=== PATIENT | male | born 1950 | race Caucasian/White ===

== ENCOUNTER 2019-04-18 19:40 | Emergency (ER) | payer MEDICARE ==
[~2019-04-18] VITALS: Ht 185.4 cm; Wt 122.5 kg
[~2019-04-18 19:40] MED LIST: ASPIR 8181 MG PO; BENICAR PO; LANTUS100 UNITS/ SQ; METFORMIN HCL500 MG PO; METOPROLOL PO; MULTAQ400 MG PO; NOVOLOG100 UNITS/ SQ; PANTOPRAZOLE SO40 MG PO
--- OUTSIDE RECORDS SUMMARY | 2019-04-18 19:42 | XMS REPORT | Encounter Summary ---
Author Organization Unknown Address [address] [place] [address] Phone [phone] Care Team Providers Care Platen Press Feeder Name Role Phone Dr. Goldie Bacon 3 [phone] Goldie Bacon MD 3 [phone] Milad Dent 81 [phone] July Burns (Spouse) 61 [phone] Martine Stinson MD 105 [phone] Kosta Suarez 115 [phone] Brenda Boyd MD 119 [phone] Leobardo Power DPM 120 [phone] Winnie Kaplan 124 [phone] Elton Mayo MD 130 [phone] Reason for Visit cough / congestion Instructions 1. Body mass index 30+ - obesity body mass index: care instructions learning about healthy weight 2. Depression screening learning about depression 3. Acute bronchitis ceftriaxone 1 gram solution for injection Zithromax Z-Bruce 250 mg tablet Cheratussin AC 10 mg-100 mg/5 mL oral liquid Medrol (Bruce) 4 mg tablets in a dose pack ProAir HFA 90 mcg/actuation aerosol inhaler Discussion Note: None recorded. Plan of Care Patient Instructions meds as directed ,adjust insulin prn as dose bruce > fbs Reminders Provider Appointments None recorded. Lab None recorded. Referral None recorded. Procedures None recorded. Surgeries None recorded. Imaging None recorded. Medications Name Start Date amlodipine 2.5 mg tablet Take 1 tablet every day by oral route. Aspir-Low 81 mg tablet,delayed release Take 1 tablet every day by oral route. atorvastatin 10 mg tablet Take 1 tablet every day by oral route. azelastine 0.05 % eye drops INSTILL 1 DROP INTO AFFECTED EYE(S) BY OPHTHALMIC ROUTE 2 TIMES PER DAY Cheratussin AC 10 mg-100 mg/5 mL oral liquid Take 10 mL every 4 hours by oral route. clopidogrel 75 mg tablet Take 1 tablet every day by oral route. clotrimazole-betamethasone 1 %-0.05 % topical cream APPLY TO THE AFFECTED AND SURROUNDING AREAS OF SKIN BY TOPICAL ROUTE 2 TIMES PER DAY IN THE MORNING AND EVENING FOR 2 WEEKS Levemir U-100 Insulin 100 unit/mL subcutaneous solution Inject 60 units twice a day by sub-q route. loratadine 10 mg tablet Take 1 tablet every day by oral route as needed. losartan 100 mg tablet Take 1 tablet every day by oral route. Medrol (Bruce) 4 mg tablets in a dose pack as directed metformin 500 mg tablet Take 1 tablet twice a day by oral route. metoprolol tartrate 25 mg tablet Take 3 tablets twice a day by oral route. Multaq 400 mg tablet Take 1 tablet twice a day by oral route. Novolog Flexpen U-100 Insulin aspart 100 unit/mL (3 mL) subcutaneous Inject 25 units 3 times a day by subcutaneous route before meals. nystatin 100,000 unit/gram topical cream APPLY TO THE AFFECTED AREA(S) BY TOPICAL ROUTE 2 TIMES PER DAY Nystop 100,000 unit/gram topical powder APPLY TO THE AFFECTED AREA(S) BY TOPICAL ROUTE 2 TIMES PER DAY olopatadine 0.2 % eye drops INSTILL 1 DROP INTO AFFECTED EYE(S) BY OPHTHALMIC ROUTE ONCE DAILY pantoprazole 40 mg tablet,delayed release Take 1 tablet every day by oral route. ProAir HFA 90 mcg/actuation aerosol inhaler Inhale 2 puffs every 4 hours by inhalation route. triamterene 37.5 mg-hydrochlorothiazide 25 mg capsule Take 1 capsule every other day by oral route. Victoza 3-Bruce 0.6 mg/0.1 mL (18 mg/3 mL) subcutaneous pen injector Zithromax Z-Bruce 250 mg tablet TAKE 2 TABLETS (500 MG) BY ORAL ROUTE ONCE DAILY FOR 1 DAY THEN 1 TABLET (250 MG) BY ORAL ROUTE ONCE DAILY FOR 4 DAYS Medications Administered None recorded. Vitals Height Weight BMI Blood Pressure 6 ft 278.2 lbs 37.7 kg/m2 116/70 mm[Hg] Lab Results None recorded. Allergies Code Code System Name Reaction Severity Status Onset 1585460 RxNorm Latex Active Sulfa (Sulfonamide Antibiotics) Hives Active Problems Name Status Onset Date Source Type 2 Diabetes Mellitus without Complication Active 07/16/2016 Body Mass Index 30+ - Obesity Active 07/16/2016 Benign Essential Hypertension Active 07/16/2016 Coronary Arteriosclerosis in [place] Artery Active 07/16/2016 Osteoarthritis of Knee Active 12/18/2016 Type II Diabetes Mellitus Uncontrolled Active 12/29/2016 Atrial Fibrillation Active 12/29/2016 Neck Pain Active 12/11/2017 Kyphosis of Thoracic Spine Active 12/11/2017 Hyperlipidemia Active 04/06/2018 Long-term Current Use of Insulin Active 04/06/2018 Type 2 Diabetes Mellitus with Multiple Complications Active 04/06/2018 Stented Coronary Artery Active 04/06/2018 Polyp of Colon Active 10/07/2018 Procedures Date Name Performed by 10/04/2018 Colonoscopy Information not available Skin Splt Grft Trnk/arm/leg Information not available Neck Spine Disk Surgery Information not available Knee Surgery Information not available Knee Surgery Information not available Vaccine List Vaccine Type influenza, high dose seasonal 04/06/20160.5 mL 07/30/20170.5 mL 03/24/20180.5 mL influenza, unspecified formulation 04/25/2015 pneumococcal conjugate PCV 13 04/06/20160.5 mL pneumococcal polysaccharide PPV23 07/19/2013 pneumococcal, unspecified formulation 07/19/2013 Tdap 01/04/2012 zoster 07/19/2013 Social History Smoking Status Former Smoker (1 1/2 PPD) Past Encounters 11/03/2018 Body Mass Index 30+ - Obesity; Depression Screening; Acute Bronchitis Murali Sandra MD: [facility] [place] [address], Ph. History of Present Illness Note:3 d h/o yellow mucoid productive cough,taking otc diabetic cough meds Review of Systems:ROS as noted in the HPI Review of Systems None recorded. Physical Exam Upper Respiratory Infection Exam Comprehensive Reported By: Patient Constitutional: General Appearance in no acute distress Skin: Inspection and palpation: no rash, no lesions, no ulcer, good turgor, no jaundice Head: Sinuses no tenderness Eyes: Pupils EOM intact, PERRLA, conjunctiva non-injected Ears: Right External auditory canal normal appearance, no obstruction, no erythema, no discharge. Left External auditory canal normal appearance, no obstruction, no erythema, no discharge. Right Tympanic membrane mobile with pneumatic otoscopy, pearly clements, landmarks clear. Left Tympanic membrane: mobile with pneumatic otoscopy, pearly clements, landmarks clear Nose: Nasal Skin: no lesion, no lacerations. Nasal Mucosa normal, pink and moist Oral Cavity/Mouth: Lips, teeth, gums normal lips, normal gums. Oral Mucosa: normal, moist, no lesions. Palate: normal hard palate, normal soft palate. Tongue: normal tongue, no lesion, no edema. Tonsils: normal tonsils, no lesions. Posterior pharynx: normal Lymph Nodes: Cervical no palpable lymph node enlargement, no submandibular adenopathy, no posterior cervical adenopathy, no anterior cervical adenopathy, no supraclavicular adenopathy Neck: Neck symmetrical, trachea midline Lungs: Respiratory effort unlabored. Auscultation no rales / crackles, no rhonchi, wheezing expiratory diffusely Cardiovascular System: Auscultation regular rate and rhythm, no murmur, no rubs, no gallops. Observation/Palpation of peripheral vascular system no varicosities, carotid pulse normal, no edema
--- OUTSIDE RECORDS SUMMARY | 2019-04-18 19:42 | XMS REPORT ---
Author Author [facility] Address Unknown Phone Unavailable Care Team Providers Care Graphic Production Artist Name Role Phone Unavailable Unavailable Payers Payer Name Policy Type Policy Number Effective Date Expiration Date Problems This patient has no known problems. Allergies, Adverse Reactions, Alerts Allergy Name Allergy Type Status Severity Reaction(s) Onset Date Inactive Date Treating Clinician Comments Sulfa (Sulfonamide Antibiotics) DA Active U 2016-05-26 00:00:00 latex DA Active U 2016-05-26 00:00:00 Medications This patient has no known medications.
--- OUTSIDE RECORDS SUMMARY | 2019-04-18 19:42 | XMS REPORT | Encounter Summary ---
Author Organization Unknown Address [address] [place] [address] Phone [phone] Care Team Providers Care Milieu Coordinator Name Role Phone Dr. Goldie Bacon 3 [phone] Goldie Bacon MD 3 [phone] Milad Dent 82 [phone] July Burns (Spouse) 61 [phone] Martine Stinson MD 105 [phone] Kosta Suarez 115 [phone] Brenda Boyd MD 119 [phone] Leobardo Power DPM 120 [phone] Winnie Kaplan 124 [phone] Elton Mayo MD 130 [phone] Reason for Visit other - see typed reason Instructions 1. Right upper quadrant pain urinalysis, dipstick urinalysis complete, reflex culture US, abdomen - please schedule and contact patient 2. Gastroesophageal reflux disease ranitidine 150 mg tablet 3. Body mass index 30+ - obesity body mass index: care instructions learning about healthy weight 4. Morbid obesity 5. Atrial fibrillation 6. Peripheral vascular disease 7. Type 2 diabetes mellitus with multiple complications Discussion Note: None recorded. Plan of Care Reminders Provider Appointments None recorded. Lab Urinalysis, Dipstick 12/20/2018 [facility] ([facility] [place] Urinalysis Complete, Reflex Culture 12/20/2018 [facility] Laboratory Referral None recorded. Procedures None recorded. Surgeries None recorded. Imaging US, Abdomen 12/20/2018 [facility] [place] Medications Name Start Date amlodipine 2.5 mg tablet Take 1 tablet every day by oral route. Aspir-Low 81 mg tablet,delayed release Take 1 tablet every day by oral route. atorvastatin 10 mg tablet Take 1 tablet every day by oral route. clopidogrel 75 mg tablet Take 1 tablet every day by oral route. Levemir U-100 Insulin 100 unit/mL subcutaneous solution Inject 60 units twice a day by sub-q route. loratadine 10 mg tablet Take 1 tablet every day by oral route as needed. losartan 100 mg tablet Take 1 tablet every day by oral route. metformin 500 mg tablet Take 1 tablet twice a day by oral route. methylprednisolone 4 mg tablets in a dose pack as directed metoprolol tartrate 25 mg tablet Take 3 tablets twice a day by oral route. Multaq 400 mg tablet Take 1 tablet twice a day by oral route. Novolog Flexpen U-100 Insulin aspart 100 unit/mL (3 mL) subcutaneous Inject 25 units 3 times a day by subcutaneous route before meals. pantoprazole 40 mg tablet,delayed release Take 1 tablet every day by oral route. ranitidine 150 mg tablet TAKE 1 TABLET BY MOUTH EVERY DAY AT BEDTIME triamterene 37.5 mg-hydrochlorothiazide 25 mg capsule Take 1 capsule every other day by oral route. Victoza 2-Bruce 0.6 mg/0.1 mL (18 mg/3 mL) subcutaneous pen injector Medications Administered None recorded. Vitals Height Weight BMI Blood Pressure 6 ft 277 lbs 37.6 kg/m2 106/70 mm[Hg] Lab Results Date Name Specimen Result Interpretation Description Value Range Status Address Urinalysis, Dipstick Color Color yellow [facility] ([facility] [place]: [address] [place] Color Appearance clear [facility] ([facility] [place]: [address] [place] Color Glucose negative [facility]) [place]: [address] [place] Color Bilirubin negative [facility] ([facility]) [place]: [address] [place] Color Ketones negative [facility] ([facility]) [place]: [address] [place] Color Specific [place] 1.020 [facility] ([facility] [place]: [address] [place] Color Blood trace [facility] ([facility] [place]: [address] [place] Color PH 7.0 [facility] [place]: [address] [place] Color Protein negative [facility] ([facility] [place]: [address] [place] Color Urobilinogen 1 [facility] [place]: [address] [place] Color Nitrites negative [facility] ([facility] [place]: [address] [place] Color Leukocytes negative [facility] ([facility] [place]: [address] [place] Allergies Code Code System Name Reaction Severity Status Onset [id number] RxNorm Latex Active Sulfa (Sulfonamide Antibiotics) Hives Active Problems Name Status Onset Date Source Type 2 Diabetes Mellitus without Complication Active 07/16/2016 Body Mass Index 30+ - Obesity Active 07/16/2016 Benign Essential Hypertension Active 07/16/2016 Coronary Arteriosclerosis in [place] Artery Active 07/16/2016 Osteoarthritis of Knee Active [...] not available Knee Surgery Information not available 12/20/2018 US, Abdomen [facility] [place] [address] [place] [address] (Work Place) Vaccine List Vaccine Type influenza, high dose seasonal 04/06/20160.5 mL 07/30/20170.5 mL 03/24/20180.5 mL influenza, unspecified formulation 04/25/2015 pneumococcal conjugate PCV 13 04/06/20160.5 mL pneumococcal polysaccharide PPV23 07/19/2013 pneumococcal, unspecified formulation 07/19/2013 Tdap 01/04/2012 zoster 07/19/2013 Social History Smoking Status Former Smoker (1 1/2 PPD) Past Encounters 12/20/2018 Right Upper Quadrant Pain; Gastroesophageal Reflux Disease; Body Mass Index 30+ - Obesity; Morbid Obesity; Atrial Fibrillation; Peripheral Vascular Disease; Type 2 Diabetes Mellitus with Multiple Complications Tee Rodas MD: [address] [place] [address], Ph. History of Present Illness Note:Pain in the RUQ yesterday, sharp type (pt had several episodes lasting a few seconds throughout the day), intensity: 7/10. No radiation. Concomitantly, belching, heartburn, nausea. Denies melena. Not better with pantoprazole. Hx of EGD and colonoscopy 2 months ago. H. pylori was negative. Diagnosed with gastritis. Review of Systems Comprehensive General Adult ROS Reported By: Patient Constitutional: Constitutional: no fever Eyes: Eyes: no vision change Cardiovascular: Cardiovascular: no chest pain, no palpitations, no lightheadedness Respiratory: Respiratory: no cough, no wheezing, no shortness of breath Gastrointestinal: Gastrointestinal: no nausea, no vomiting, no constipation, no diarrhea Musculoskeletal: Musculoskeletal: no swelling in the extremities Integumentary: Skin: no rashes Neurologic: Neurologic: no loss of consciousness, no headaches Psychiatric: Psych: no depression, no alcohol abuse, no anxiety, no suicidal thoughts Endocrine: Endocrine: no fatigue Physical Exam General Adult Exam (male) Reported By: Patient Constitutional: General Appearance: healthy-appearing, obese. Level of Distress: NAD. Ambulation: ambulating normally Psychiatric: Insight: good judgement. Mental Status: active and alert, normal mood, normal affect. Orientation: to time, to place, to person. Memory: recent memory normal, remote memory normal Eyes: Lids and Conjunctivae: non-injected, no discharge ENMT: Ears: TMs clear. Nose: no sinus tenderness. Lips, Teeth, and Gums: no mouth or lip ulcers. Oropharynx: moist mucous membranes Neck: Neck: supple, trachea midline Lungs: Auscultation: breath sounds normal Cardiovascular: Heart Auscultation: RRR, normal S1, normal S2, no murmurs. Neck vessels: no carotid bruits Abdomen: Inspection and Palpation: soft, non-distended, no tenderness, no guarding, no rebound tenderness, no masses, no CVA tenderness. Liver: non-tender, no hepatomegaly. Spleen: non-tender, no splenomegaly. Hernia: none palpable Musculoskeletal:: Motor Strength and Tone: normal, normal tone. Extremities: no edema Neurologic: Gait and Station: normal gait Skin: Inspection and palpation: no rash, no lesions
--- OUTSIDE RECORDS SUMMARY | 2019-04-18 19:42 | XMS REPORT | Encounter Summary ---
Author Organization Unknown Address [address] [place] [address] Phone [phone] Care Team Providers Care Ice Cream Van Vendor Name Role Phone Dr. Goldie Bacon 3 [phone] Goldie Bacon MD 3 [phone] Milad Dent 82 [phone] July Burns (Spouse) 61 [phone] Martine Stinson MD 105 [phone] Kosta Suarez 115 [phone] Brenda Boyd MD 119 [phone] Leobardo Power DPM 120 [phone] Winnie Kaplan 124 [phone] Elton Mayo MD 130 [phone] Reason for Visit other - see typed reason Instructions 1. Body mass index 30+ - obesity body mass index: care instructions learning about healthy weight Discussion Note: None recorded. Plan of Care Reminders Provider Appointments Est Patient 04/10/2019 11:00AM Goldie Bacon MD Lab None recorded. Referral None recorded. Procedures [...] Height Weight BMI Blood Pressure 6 ft 276 lbs 37.4 kg/m2 Lab Results None recorded. Allergies Code Code System Name Reaction Severity Status Onset [id number] RxNorm Latex Active Sulfa (Sulfonamide Antibiotics) Hives Active Problems Name Status Onset Date Source Type 2 Diabetes Mellitus without Complication Active 07/16/2016 Body Mass Index 30+ - Obesity Active 07/16/2016 Benign Essential Hypertension Active 07/16/2016 Coronary Arteriosclerosis in [place] Artery Active 07/16/2016 Osteoarthritis of Knee Active [...] 07/19/2013 Tdap 01/04/2012 zoster 07/19/2013 Social History Tobacco Smoking Status Former Smoker (1 1/2 PPD) Past Encounters 02/20/2019 Body Mass Index 30+ - Obesity Goldie Bacon MD: [address] [place] [address], Ph. History of Present Illness None recorded. Review of Systems None recorded. Physical Exam None recorded.
--- OUTSIDE RECORDS SUMMARY | 2019-04-18 19:42 | XMS REPORT | Summary of Care ---
Author Author [facility] Organization [facility] - [facility] Address Unknown Phone Unavailable Care Team Providers Care Branch Sales And Service Representative Name Role Phone BjchritsinaEdin PCP Reason for Visit * Reason Comments Refill Request Encounter Details Care Team Description Date Type Department Brenda Boyd MD [address] [place] [id number] [phone] Refill Request 04/03/[address] [address] Allergies Comments Active Allergy Reactions Severity Noted Date Latex Rash Medium 08/23/2018 Sulfa (Sulfonamide Rash Medium 08/23/2018 Antibiotics) documented as of this encounter (statuses as of 04/06/2019) Medications End Date Status Medication Sig Dispensed Refills Start Date Active metoprolol tartrate 25 mg Take 75 mg by 0 tabletIndications: take 3 mouth 2 (two) pills twice a day times daily. Active losartan 100 mg tablet Take 100 mg 0 by mouth daily. Active clopidogrel 75 mg tablet Take 75 mg by 0 mouth daily. Active aspirin 81 mg EC tablet Take 81 mg by 0 mouth daily. Active amLODIPine 2.5 mg tablet Take 2.5 mg 0 by mouth daily. Active triamterene-hydrochloroth Take 1 0 iazide 37.5-25 mg per capsule by capsule mouth every morning. Active atorvastatin 10 mg tablet Take 10 mg by 0 mouth at bedtime. Active pantoprazole 40 mg EC Take 40 mg by 0 tablet mouth daily. Active dronedarone (MULTAQ) 400 Take 400 mg 0 mg tablet by mouth 2 (two) times daily with meals. Active omeprazole magnesium Take by 0 (PRILOSEC) 10 mg SuDR mouth. Active insulin aspart U-100 inject 25 4 Box 1 (NOVOLOG FLEXPEN U-100 Units under 9 INSULIN) 100 unit/mL the skin 3 injectionIndications: (three) times Type 2 diabetes mellitus daily before with diabetic meals. polyneuropathy, with long-term current use of insulin Active metFORMIN 500 mg Take 1 tablet 180 tablet 1 tabletIndications: Type 2 by mouth 2 9 diabetes mellitus with (two) times diabetic polyneuropathy, daily with with long-term current meals. use of insulin Active insulin detemir U-100 inject 60 12 Vial 1 (LEVEMIR U-100 INSULIN) Units under 9 100 unit/mL the skin 2 injectionIndications: (two) times Type 2 diabetes mellitus daily. with diabetic polyneuropathy, with long-term current use of insulin Active VICTOZA 3-BENJY 0.6 mg/0.1 INJECT 0.6 MG 9 mL 0 mL (18 mg/3 mL) VIA 9 injectionIndications: SUBCUTANEOUS Type 2 diabetes mellitus ROUTE DAILY with diabetic DIRECTED polyneuropathy, with long-term current use of insulin 04/06/2019 Discontinued VICTOZA 3-BENJY 0.6 mg/0.1 inject 1.8 mg 3 Syringe 0 mL (18 mg/3 mL) injection under the 9 skin daily. E11.42 documented as of this encounter (statuses as of 04/06/2019) Active Problems Problem Noted Date Type 2 diabetes mellitus with diabetic polyneuropathy, with long-term 08/23/2018 current use of insulin Mixed hyperlipidemia 08/23/2018 Essential hypertension 08/23/2018 documented as of this encounter (statuses as of 04/06/2019) Social History Date Tobacco Use Types Packs/Day Years Used Never Smoker Smokeless Tobacco: Never Used Drinks/Week oz/Week Comments Alcohol Use No Sex Assigned at Date Recorded Not on file Industry Job Start Date Occupation Not on file Not on file Not on file Travel End Travel History Travel Start No recent travel history available. documented as of this encounter Last Filed Vital Signs Not on filedocumented in this encounter Plan of Treatment Care Team Description Date Type Specialty Brenda Boyd MD [address] [place] [address], [place] [address] [phone] 05/23/2019 Office Visit Endocrinology Diabetes & Metabolism Health Maintenance Due Date Last Done Comments HEPATITIS C (HCV) SCREEN 1949 EYE EXAM 1959 LDL-C 1959 URINE MICROALBUMIN 1959 FOOT EXAM 1967 DTaP,Tdap,and Td Vaccines 01/04/1968 (1 - Tdap) COLONOSCOPY 1999 Zoster Recombinant 1999 Vaccine (SHINGRIX) (1 of 2) Medicare Wellness Visit 2014 PNEUMOCOCCAL VACCINES 65+ 2014 (1 of 2 - PCV13) INFLUENZA VACCINE (#1) 2019 HgA1C 06/20/2019 12/19/2018 CREATININE (SERUM) 12/20/2019 12/19/2018, 12/09/2004, 12/08/2004 documented as of this encounter Results Not on filedocumented in this encounter Visit Diagnoses Diagnosis Type 2 diabetes mellitus with diabetic polyneuropathy, with long-term current use of insulin documented in this encounter Insurance Type Payer Benefit Subscriber ID Effective Phone Address Plan / Dates Group Medicare MEDICARE MEDICARE xxxxxxxxxxx 2013-P [phone] [address] resent [id number] [place] [id number] Medicare Supplement [facility] [id number] 2018-P [address] resent [id number] MEDICARE [place] SUPPLEMENT [place] [id number] documented as of this encounter
== END 2019-04-18 20:02 | disposition home or self-care (01) ==
LOC: ER 19:40
DX: K21.9 Gastro-esophageal reflux disease without esophagitis (principal); I10 Essential (primary) hypertension; E11.9 Type 2 diabetes mellitus without complications; I48.91 Unspecified atrial fibrillation; Z79.82 Long term (current) use of aspirin; Z79.4 Long term (current) use of insulin
CPT/HCPCS: 93005; 99282